=== PATIENT | female | born 1975 ===

== ENCOUNTER 2016-12-12 17:55 | Inpatient (IN) | payer MEDICAID, OTHER ==
--- NOTE | 2016-12-12 18:31 | ED PDOC ---
HPI: General Adult Time Seen by Provider: 12/12/16 18:23 Chief Complaint (Nursing): Back Pain Chief Complaint (Provider): Ectopic eval History Per: Patient History/Exam Limitations: no limitations Onset/Duration Of Symptoms: Days (2) Additional Complaint(s): Pelvic pain 2 days. Seen at [facility] and dx with ectopic today. Dr. Witt obgymarycarmen accepted for transfer to ER [facility]. Pt. with vaginal bleeding. No back pain. No nausea, diarrhea. No weakness. No dizziness. Past Medical History Reviewed: Nursing Documentation, Vital Signs Vital Signs: Last Vital Signs Temp 98.6 F 12/12/16 17:57 Pulse 68 12/12/16 17:57 Resp 18 12/12/16 17:57 BP 106/67 12/12/16 17:57 Pulse Ox 100 12/12/16 18:31 - Medical History PMH: No Chronic Diseases Denies: Chronic Kidney Disease - Surgical History Surgical History: No Surg Hx - Family History Family History: States: Unknown Family Hx - Living Arrangements Living Arrangements: With Family - Social History Current smoker - smoking cessation education provided: No Alcohol: None Drugs: Denies - Home Medications Home Medications: Ambulatory Orders Medication Instructions Recorded Ferrous Sulfate 300 mg PO DAILY 12/12/16 Folic Acid [Folic Acid] 5 mg PO DAILY 12/12/16 Nitrofurantoin Macrocrystal 100 mg PO BID 12/12/16 [Nitrofurantoin] - Allergies Allergies/Adverse Reactions: Allergies Allergy/AdvReac Type Severity Reaction Status Date / Time No Known Allergies Allergy Verified 12/12/16 13:04 Review of Systems ROS Statement: Except As Marked, All Systems Reviewed And Found Negative Genitourinary Female: Positive for: Vaginal Bleeding, Pelvic Pain Physical Exam - Reviewed Nursing Documentation Reviewed: Yes Vital Signs Reviewed: Yes - Physical Exam Appears: Positive for: Non-toxic, No Acute Distress Head Exam: Positive for: ATRAUMATIC, NORMAL INSPECTION, NORMOCEPHALIC Skin: Positive for: Normal Color, Warm, DRY Eye Exam: Positive for: EOMI, Normal appearance, PERRL ENT: Positive for: Normal ENT Inspection Neck: Positive for: Normal, Painless ROM Cardiovascular/Chest: Positive for: Regular Rate, Rhythm Respiratory: Positive for: CNT, Normal Breath Sounds Gastrointestinal/Abdominal: Positive for: Normal Exam, Bowel Sounds, Soft, Tenderness (pelvis across) Back: Positive for: Normal Inspection. Negative for: L CVA Tenderness, R CVA Tenderness Extremity: Positive for: Normal ROM Neurologic/Psych: Positive for: Alert, Oriented - ECG O2 Sat by Pulse Oximetry: 100 - Progress ED Course And Treament: 1832: Dr. Mcguire at bedside. Knows about pt. Will take to OR. Stable. Disposition - Clinical Impression Clinical Impression: Ectopic - Patient ED Disposition Is Patient to be Admitted: Yes Counseled Patient/Family Regarding: Studies Performed, Diagnosis - Disposition Disposition Time: 18:35 Condition: FAIR - Pt Status Changed To: Hospital Disposition Of: Inpatient - Admit Certification Admit to Inpatient:: After my assessment, the patient will require hospitalization for at least two midnights. This is because of the severity of symptoms shown, intensity of services needed, and/or the medical risk in this patient being treated as an outpatient. - POA Present On Arrival: None
[2016-12-12] MEDS ORDERED: Rocuronium 10 mg/ml (5 ml) ONE (19:14)
[2016-12-12] MEDS ORDERED: Propofol 10 mg/ml Inj (20 ML) ONE (19:14)
[2016-12-12] MEDS ORDERED: Midazolam 2 MG/2 ML VIAL ONE (19:14)
[2016-12-12] MEDS ORDERED: Succinylcholine 200 mg/10 ml Inj IV ONE (19:15)
[2016-12-12] MEDS ORDERED: Lidocaine 4% (Laryng-O-Jet) Kit MM ONE (19:15)
[2016-12-12] MEDS ORDERED: Neostigmine Methylsulfate 3mg/3ml Syringe IV ONE (19:15)
[2016-12-12] MEDS ORDERED: Lactated Ringer's 1,000 ML IV SCH (19:30)
--- NOTE | 2016-12-12 19:41 | CP.PCM.HP ---
<Vivienne Carrion - Last Filed: 12/12/16 19:54> History of Present Illness - History of Present Illness History of Present Illness: CC: "right sided abdominal pain" HPI: patient is a 41 YO female with hx of ectopic 3 years ago comes in with right sided lower abdominal pain. pain started early yesterday morning and has worsened. Per patient she also had some vaginal bleeding the last two times she was in the bathroom. She describes that this pain is similair to the pain she had 3 years ago when she had the ectopic . Her LMP was October 22, 2016, and although patient did not take a test at home, she believes she is again. Sexually active with men, does not use protection. Notes that she does not want to get again. Denies N/V, chest pain, dyspnea, dizziness, and remains afebrile. Surghx: hx of ectopic 3 years ago, PMH: denies Social: denies alcohol, drugs and smoking, sexually active with men, no protection use Allergies: NKDA OBHX: , LMP was October 22, 2016, gestation age approximately 7 weeks and 3 days by LMP- undesired , with no intention of future pregnancies. C - section in the past. FH: not pertinent Present on Admission - Present on Admission Any Indicators Present on Admission: No Review of Systems - Constitutional Constitutional: absent: Fever, Weakness - Cardiovascular Cardiovascular: absent: Chest Pain, Dyspnea - Respiratory Respiratory: absent: Cough, Dyspnea - Gastrointestinal Gastrointestinal: Abdominal Pain. absent: Nausea, Vomiting Additional comments: RLQ abdominal pain - Reproductive: Female Additional comments: minimal vag bleeding - Neurological Neurological: absent: Dizziness, Weakness Past Patient History - Tetanus Immunizations Tetanus Immunization: Unknown - Past Medical History & Family History Past Medical History?: No - Past Social History Alcohol: None Drugs: Denies - CARDIAC Hx Cardiac Disorders: No - PULMONARY Hx Respiratory Disorders: No - NEUROLOGICAL Hx Neurological Disorder: No - HEENT Hx HEENT Problems: No - RENAL Hx Chronic Kidney Disease: No - ENDOCRINE/METABOLIC Hx Endocrine Disorders: No - HEMATOLOGICAL/ONCOLOGICAL Hx Blood Disorders: No - INTEGUMENTARY Hx Dermatological Problems: No - MUSCULOSKELETAL/RHEUMATOLOGICAL Hx Musculoskeletal Disorders: No - GASTROINTESTINAL Hx Gastrointestinal Disorders: No - GENITOURINARY/GYNECOLOGICAL Hx Genitourinary Disorders: Yes (ectopic ) - PSYCHIATRIC Hx Psychophysiologic Disorder: No Hx Substance Use: No - SURGICAL HISTORY Hx Surgeries: Yes (ectopic ) - ANESTHESIA Hx Anesthesia: Yes Meds Allergies/Adverse Reactions: Allergies Allergy/AdvReac Type Severity Reaction Status Date / Time No Known Allergies Allergy Verified 12/12/16 13:04 Physical Exam - Constitutional Appears: Non-toxic, In Acute Distress - Head Exam Head Exam: ATRAUMATIC - Eye Exam Eye Exam: EOMI, Normal appearance - Respiratory Exam Respiratory Exam: Clear to Auscultation Bilateral, NORMAL BREATHING PATTERN. absent: Wheezes - Cardiovascular Exam Cardiovascular Exam: REGULAR RHYTHM, +S1, +S2 - GI/Abdominal Exam GI & Abdominal Exam: Mass, Normal Bowel Sounds, Tenderness Additional comments: RLQ abdominal pain, Tenderness to palpation. Minimal rebound. Palpable mass in RLQ. Healed scar seen. - Extremities Exam Extremities exam: Negative for: pedal edema, tenderness - Neurological Exam Neurological exam: Alert, Oriented x3 - Psychiatric Exam Psychiatric exam: Anxious, Normal Affect - Skin Skin Exam: Dry, Intact, Normal Color, Warm Results - Vital Signs Recent Vital Signs: Last Vital Signs Temp 97.8 F 12/12/16 19:08 Pulse 78 12/12/16 19:08 Resp 19 12/12/16 19:08 BP 128/78 12/12/16 19:08 Pulse Ox 98 12/12/16 19:08 Assessment & Plan - Assessment and Plan (Free Text) Assessment: patient is a 41 YO female with hx of ectopic 3 years ago comes in with right sided lower abdominal pain. pain started early yesterday morning and has worsened. Per patient LMP was october 22, 2016 and with possible . B-HCG done in ED was highly positive, with RLQ palpable mass, with signs and symptoms of ectopic . 1. Ectopic -admit to med/surg -OR for laproscopic procedure with possible open laparotomy -IV access -type and screen -start ancep 1g -start LR at 125ml/hr -monitor vitals Patient discussed with attending, Dr. Mcguire. <Jacobo Mcguire - Last Filed: 12/13/16 09:09> Results - Vital Signs Recent Vital Signs: Last Vital Signs Temp 98.3 F 12/13/16 07:40 Pulse 77 12/13/16 07:40 Resp 18 12/13/16 07:40 BP 113/72 12/13/16 07:40 Pulse Ox 100 12/13/16 07:40 - Labs Result Diagrams: 12/13/16 07:15 Labs: Laboratory Results - last 24 hr 12/12/16 12/13/16 19:28 07:15 WBC 14.5 H RBC 3.99 Hgb 11.3 L Hct 34.1 MCV 85.4 MCH 28.3 MCHC 33.2 RDW 15.4 H Plt Count 277 Blood Type O POSITIVE Antibody Screen Negative BBK History Checked Patient has bt Assessment & Plan - Assessment and Plan (Free Text) Plan: Late entry: Around 18:30pm she arrived from [facility] ER to [facility] ER... OB Hospitalist note: This pt was seen and examined by me. Agree with above note. Informed consent obtained MAHNDO - Date & Time Date: 12/12/16 Time: 20:00
[2016-12-12] MEDS ORDERED: Lactated Ringer's 1,000 ML IV ONE ×3 (20:18→21:30)
[2016-12-12] MEDS ORDERED: Bupivacaine 0.5% 50 ML IJ ONE (20:35)
[2016-12-12] MEDS ORDERED: Lidocaine 1% Inj (20ml) ONE (20:39)
[2016-12-12] MEDS ORDERED: Bupivacaine 0.5% Inj(30mL) ONE (20:39)
[2016-12-12] MEDS ORDERED: Cellulose Hemostat 2X3 Sheet TP ONE (21:00)
[2016-12-12] MEDS ORDERED: Dextrose 5%/Lactated Ringer's 1,000 ML IV SCH (21:45)
--- NOTE | 2016-12-12 21:54 | PCM.SURG1 ---
Surgeon's Initial Post Op Note - Surgeon's Notes Surgeon: Radha HOLLIS DO Assembler Dc Field Yoke: Anatoly Crews MD; Pre-Operative Diagnosis: Pelvic mass/pain; possible ectopic preg Operative Findings: Hemoperitoneum (500cc); right cornual ectopic preg; pelvic adhesions Post-Operative Diagnosis: As above Operation Performed: Laparoscopy; laparotomy; evacuation of hemoperitoneum; excision of right cornual ectopic ; lysis of adhesions Specimen/Specimens Removed: EMC; right ectopic preg Estimated Blood Loss: EBL {In ML}: 500 Blood Products Given: N/A Drains Used: No Drains Post-Op Condition: Good Date of Surgery/Procedure: 12/12/16 Time of Surgery/Procedure: 20:30
[2016-12-12] MEDS ORDERED: HYDROmorphone 0.5 mg/0.5 ml ISec ONE (21:57)
[2016-12-12] MEDS: HYDROmorphone 0.5 mg/0.5 ml ISec IVP PRN ×4 (22:05→22:35)
[2016-12-12] MEDS: Lactated Ringer's 1,000 ML IV SCH ×2 (23:10→23:30)
[2016-12-12] MEDS: DiphenhydrAMINE 50 mg/ml Inj IVP STA ×2 (23:15→23:20)
[2016-12-13] MEDS: Oxycodone/Acetaminophen 5/325 mg Tab PO PRN (02:30)
[2016-12-13] MEDS ORDERED: Oxycodone/Acetaminophen 5/325 mg Tab PO ONE (04:46)
--- NOTE | 2016-12-13 06:59 | CP.PCM.PN ---
Subjective - Date & Time of Evaluation Date of Evaluation: 12/13/16 Time of Evaluation: 05:25 - Subjective Subjective: patient is seen and examined bedside. S/p Laparoscopy, laparotomy for R ectopic . This morning pt endorses sever pain in her abdomen, tolerating well with pain meds. Denies chest pain, dyspnea, n/v. VS stable and remains afebrile. Tolerating sips of water. Objective - Vital Signs/Intake and Output Vital Signs (last 24 hours): Temp Pulse Resp BP Pulse Ox 98.2 F 81 14 112/75 100 12/13/16 03:40 12/13/16 03:40 12/13/16 03:40 12/13/16 03:40 12/13/16 03:40 Intake and Output: 12/12/16 12/13/16 18:59 06:59 Intake Total 2800 Output Total 900 Balance 1900 - Medications Medications: Current Medications Famotidine (Pepcid) 20 mg PO BID [facility] Cefazolin Sodium 1 gm/ Sodium (Chloride) 100 mls @ 100 mls/hr IVPB Q12 [facility] Dextrose/Lactated Ringer's (Dextrose 5%/Lactated Ringer's) 1,000 mls @ 125 mls/ hr IV .Q8H [facility] Stop: 12/13/16 21:35 Last Admin: 12/13/16 05:17 Dose: 125 mls/hr Lactated Ringer's (Lactated Ringer's) 1,000 mls @ 100 mls/hr IV .Q10H [facility] Last Admin: 12/12/16 23:30 Dose: 0 mls Ibuprofen (Motrin Tab) 600 mg PO Q6 PRN PRN Reason: Pain, Mild (1-3) Ketorolac Tromethamine (Toradol) 30 mg IVP Q6 PRN PRN Reason: Pain, severe (8-10) Last Admin: 12/13/16 06:33 Dose: 30 mg Ondansetron HCl (Zofran Inj) 4 mg IVP Q6 PRN PRN Reason: Nausea/Vomiting Oxycodone/Acetaminophen (Percocet 5/325 Mg Tab) 1 tab PO Q6 PRN PRN Reason: Pain, moderate (4-7) Stop: 12/15/16 21:25 Last Admin: 12/13/16 02:30 Dose: 1 tab - Constitutional Appears: Well - Head Exam Head Exam: ATRAUMATIC, NORMAL INSPECTION, NORMOCEPHALIC - Eye Exam Eye Exam: Normal appearance - ENT Exam ENT Exam: Mucous Membranes Moist - Respiratory Exam Respiratory Exam: Clear to Ausculation Bilateral, NORMAL BREATHING PATTERN. absent: Wheezes - Cardiovascular Exam Cardiovascular Exam: REGULAR RHYTHM, +S1, +S2. absent: Murmur - GI/Abdominal Exam GI & Abdominal Exam: Soft, Tenderness (Tenderness to palpation in the lower quadrants.), Hypoactive Bowel Sounds. absent: Distended Additional comments: Low transverse abdominal incision scar noted, no fluid/blood seen on surgical bandage. - Extremities Exam Extremities Exam: Normal Capillary Refill. absent: Pedal Edema, Tenderness - Neurological Exam Neurological Exam: Alert, Awake - Psychiatric Exam Psychiatric exam: Anxious - Skin Skin Exam: Dry, Normal Color, Warm Assessment and Plan - Assessment and Plan (Free Text) Assessment: patient is a 41 YO female with hx of ectopic 3 years ago comes in with right sided lower abdominal pain. LMP was October 22, 2016 and with possible . B-HCG done in ED was highly positive, with RLQ palpable mass , consistent with signs and symptoms of ectopic . S/p Laparoscopy; laparotomy; evacuation of hemoperitoneum; excision of right cornual ectopic ; lysis of adhesions with estimated 500ml of blood loss. 1. s/p laparoscopy, laparotomy for Ectopic - continue pain management, Motrin 600mg Q6H for mild pain , Percocet 5/325mg Q6 for moderate - continue Toradol 30mg IVP Q6 for severe pain - OOB with caution - SCDs for DVT prophylaxis - advance to liquid diet, and to regular as tolerated - d/c carballo in AM - continue D5LR @ 125ml/hr - follow up cbc Vivienne Carrion, PGY-I
[2016-12-13 07:35] LABS: HEMOGLOBIN 11.3 g/dL (12.0-16.0); MEAN CELL VOLUME 85.4 fl (81.0-99.0); MEAN CORPUSCULAR HEMOGLOBIN 28.3 pg (27.0-31.0); MEAN CORPUSCULAR HGB CONC 33.2 g/dL (33.0-37.0); RBC 3.99 Mil/uL (3.80-5.20); RED CELL DISTRIBUTION WIDTH 15.4 % (11.5-14.5); WHITE BLOOD COUNT 14.5 K/uL (4.8-10.8)
[2016-12-13] MEDS: ceFAZolin 1 GM in Sodium Chloride 0.9% 100 ML IVPB SCH ×2 (09:39→20:38)
[2016-12-13 13:27] LABS: MEAN CELL VOLUME 85.9 fl (81.0-99.0); MEAN CORPUSCULAR HEMOGLOBIN 28.6 pg (27.0-31.0); MEAN CORPUSCULAR HGB CONC 33.3 g/dL (33.0-37.0); RBC 3.84 Mil/uL (3.80-5.20); RED CELL DISTRIBUTION WIDTH 15.7 % (11.5-14.5); WHITE BLOOD COUNT 11.9 K/uL (4.8-10.8)
[2016-12-13 23:39] LABS: SQUAMOUS EPITHIAL 5 /hpf (0-5); URINE BACTERIA RARE (<OCC); URINE BILIRUBIN NEGATIVE (NEGATIVE); URINE BLOOD LARGE (NEGATIVE); URINE CLARITY SLIGHTY-CLOUDY (Clear); URINE COLOR STRAW (YELLOW); URINE GLUCOSE (UA) NEG (Normal); URINE LEUKOCYTE ESTERASE TRACE Leu/uL (Negative); URINE NITRATE NEGATIVE (NEGATIVE); URINE PROTEIN NEGATIVE (NEGATIVE); URINE UROBILINOGEN 0.2-1.0 mg/dL (0.2-1.0)
[2016-12-14] MEDS: Oxycodone/Acetaminophen 5/325 mg Tab PO PRN ×2 (00:26→08:24)
[2016-12-14] MEDS: Lactated Ringer's 1,000 ML IV SCH (04:23)
[2016-12-14 07:27] VITALS: PULSE 75
[2016-12-14 16:05] VITALS: BP 99/66; RESP 18; TEMP 99.4; O2SAT 99
--- NOTE | 2016-12-14 18:35 | CP.PCM.DIS ---
Provider - Provider Date of Admission: 12/12/16 18:29 Attending physician: Jacobo Mcguire DO Time Spent in preparation of Discharge (in minutes): 30 Diagnosis - Discharge Diagnosis (1) Ectopic Status: Resolved Hospital Course - Lab Results Lab Results: Most Recent Lab Values WBC 11.9 K/uL (4.8-10.8) H 12/13/16 12:30 RBC 3.84 Mil/uL (3.80-5.20) 12/13/16 12:30 Hgb 11.0 g/dL (12.0-16.0) L 12/13/16 12:30 Hct 33.0 % (34.0-47.0) L 12/13/16 12:30 MCV 85.9 fl (81.0-99.0) 12/13/16 12:30 MCH 28.6 pg (27.0-31.0) 12/13/16 12:30 MCHC 33.3 g/dL (33.0-37.0) 12/13/16 12:30 RDW 15.7 % (11.5-14.5) H 12/13/16 12:30 Plt Count 261 K/uL (130-400) 12/13/16 12:30 Urine Color Straw (YELLOW) 12/13/16 23:25 Urine Clarity Slighty-cloudy (Clear) 12/13/16 23:25 Urine pH 6.0 (5.0-8.0) 12/13/16 23:25 Ur Specific Hull < 1.005 (1.003-1.030) 12/13/16 23:25 Urine Protein Negative mg/dL (NEGATIVE) 12/13/16 23:25 Urine Glucose (UA) Neg mg/dL (Normal) 12/13/16 23:25 Urine Ketones Negative mg/dL (NEGATIVE) 12/13/16 23:25 Urine Blood Large (NEGATIVE) 12/13/16 23:25 Urine Nitrate Negative (NEGATIVE) 12/13/16 23:25 Urine Bilirubin Negative (NEGATIVE) 12/13/16 23:25 Urine Urobilinogen 0.2-1.0 mg/dL (0.2-1.0) 12/13/16 23:25 Ur Leukocyte Esterase Trace Sho/uL (Negative) 12/13/16 23:25 Urine RBC (Auto) 1 /hpf (0-3) 12/13/16 23:25 Urine Microscopic WBC 2 /hpf (0-5) 12/13/16 23:25 Ur Squamous Epith Cells 5 /hpf (0-5) 12/13/16 23:25 Urine Bacteria Rare (<OCC) 12/13/16 23:25 Blood Type O POSITIVE 12/12/16 19:28 Antibody Screen Negative 12/12/16 19:28 BBK History Checked Patient has bt 12/12/16 19:28 - Hospital Course Hospital Course: Patient is a 41 YO female with hx of ectopic 3 years ago comes in with right sided lower abdominal pain. Pain started early yesterday morning and has worsened. Per patient she also had some vaginal bleeding the last two times she was in the bathroom. She describes that this pain is similair to the pain she had 3 years ago when she had the ectopic . Her LMP was October, and although patient did not take a test at home, she believes she is again. Sexually active with men, does not use protection. Patient was seen and examined this AM. She has some mild abdominal pain, tolerating PO diet, ambulating. Denies N/V, chest pain, dyspnea, dizziness, and remains afebrile. Assessment/Plan: 41 YO female with hx of ectopic 3 years ago comes in with right sided lower abdominal pain. LMP was October 22, 2016 and with possible . B -HCG done in ED was highly positive, with RLQ palpable mass, consistent with signs and symptoms of ectopic . S/p Laparoscopy; laparotomy; evacuation of hemoperitoneum; excision of right cornual ectopic ; lysis of adhesions with estimated 500ml of blood loss. 1. s/p laparoscopy, laparotomy for Ectopic - d/c home with toradol 15mg Q6 for pain - encouraged to ambulate - follow up in clinic for suture removal in 1 week - patient education on safe sex - follow up with pcp - Date & Time of H&P Date of H&P: 12/14/16 Time of H&P: 10:30 Discharge Exam - Head Exam Head Exam: ATRAUMATIC, NORMAL INSPECTION, NORMOCEPHALIC - Eye Exam Eye Exam: EOMI, Normal appearance - Respiratory Exam Respiratory Exam: NORMAL BREATHING PATTERN. absent: Rales, Wheezes - Cardiovascular Exam Cardiovascular Exam: REGULAR RHYTHM, +S1, +S2 - GI/Abdominal Exam GI & Abdominal Exam: Normal Bowel Sounds, Soft. absent: Distended, Mass, Rebound, Rigid - Extremities Exam Extremities exam: full ROM, normal inspection - Neurological Exam Neurological exam: Alert, Oriented x3 - Psychiatric Exam Psychiatric exam: Normal Affect, Normal Mood - Skin Skin Exam: Dry, Normal Color, Warm Discharge Plan - Discharge Medications Prescriptions: Ketorolac Tromethamine [Toradol] 15 mg PO Q8 20 Days - Follow Up Plan Condition: FAIR Disposition: HOME/ ROUTINE Patient education suggested?: Yes Instructions: Ectopic (DC) Additional Instructions: pt was advised to walk as tolerated Advised to come to ER if pain worsens f/u in clinic for suture removal next week at 12/20/16 at 9am, [facility] ([facility]), [address] [place] [address], . Please go and apply for romeo care at the same place before 12/20/16 toradol 15 mg PO PRN for pain regular diet as tolerated Referrals: [facility] at [facility] [Outside]
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
== END 2016-12-14 16:54 | disposition home or self-care (01) | DRG 777 ==
LOC: H.ER 17:55 → OBSVTOIN 18:29 → H.ERHOLD 18:29 → H.MEDSURG1 23:39
PROVIDERS: ADMIT Obstetrics & Gynecology; ATTEND Obstetrics & Gynecology
PROC: 10T20ZZ Resection of Products of Conception, Ectopic, Open Approach (ICD-10-PCS; principal; 2016-12-12 19:30)
DX: O00.80 Other ectopic pregnancy without intrauterine pregnancy (principal); Z53.31 Laparoscopic surgical procedure converted to open procedure